=== PATIENT | female | born 1960 | race Caucasian/White ===

== ENCOUNTER 2017-09-20 06:22 | Observation (INO) | payer BC ==
[2017-09-20] MEDS ORDERED: Aspirin 81 MG Tab.Chew PO ONE (06:33)
[2017-09-20] MEDS ORDERED: Nitroglycerin 0.4 MG Tab.SL SL ONE (07:07)
[2017-09-20] MEDS ORDERED: Sodium Chloride 0.9% 1,000 ML IV ONE (07:09)
--- NOTE | 2017-09-20 07:20 | EDM.PDOC ---
ED HPI GENERAL MEDICAL PROBLEM - General Chief Complaint: Chest Pain Stated Complaint: CHEST PAIN Time Seen by Provider: 09/20/17 06:50 Source of Information: Reports: Patient, Family History Limitations: Reports: No Limitations - History of Present Illness INITIAL COMMENTS - FREE TEXT/NARRATIVE: c/o L-sided CP x 2h pt ate a kevon melt and fries at 6:30p, went to bed at 9:30 PM as usual, felt fine, slept until 5a when she was awaken by L sided CP, no sob, no n/v, no f/c/d lay in bed for an hour, pain a little less when she rubbed her chest, inc'd pain when she walked and took a deep breath was 5/10, still present, now 3/10 without meds did not take meds at home, has not had this kind of pain before, no prior EKG, never smoked says her cholesterol is at the upper edge of normal, does not take meds for it father had several MIs and age 84 from a CVA, mother with no heart trouble , age 89 most likely from a stroke describes pain as an ache, no radiation has been under stress, 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 147/73 initial, then 115/91 without meds EKG with 0.[address] increase in II & F and 0.[address] increase in III, Q's in V1 & V2, NSR 69, no comparison no wt change, denies feet swelling altho notes that her socks has been leaving a dent the past 2 weeks when she takes them off, does have trace edema to presacral area present b/l now left chest pain Pain Score (Numeric/FACES): 5 - Related Data Allergies Allergy/AdvReac Type Severity Reaction Status Date / Time amoxicillin Allergy Rash Verified 09/20/17 08:31 Home Meds: Home Meds Alendronate Sodium [Alendronate] 70 mg PO PATTERSON 09/20/17 [History] Ca/D3/Mag Ox/Zinc/Precision Lens Polisher/Bassem/Bor [Calcium 600-D3 Plus Caplet] 1 tab PO BID [History] FLUoxetine HCl [Fluoxetine HCl] 20 mg PO BID 09/20/17 [History] Hydrochlorothiazide 25 mg PO DAILY 09/20/17 [History] NIFEdipine [Nifedipine ER] 30 mg PO DAILY 09/20/17 [History] Past Medical History Cardiovascular History: Reports: Hypertension 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 Denies: Fever, Chills, Malaise, Fatigue, Night Sweats, Diaphoresis HEENT: Reports: No Symptoms Respiratory: Reports: No Symptoms. Denies: Shortness of Breath, Cough Cardiovascular: Reports: Chest Pain Endocrine: Reports: No Symptoms GI/Abdominal: Reports: No Symptoms. Denies: Abdominal Pain, Nausea, Vomiting : Reports: No Symptoms Musculoskeletal: Reports: No Symptoms Skin: Reports: No Symptoms Neurological: Reports: No Symptoms Psychiatric: Reports: No Symptoms Hematologic/Lymphatic: Reports: No Symptoms Immunologic: Reports: No Symptoms ED EXAM, GENERAL - Physical Exam Exam: See Below Exam Limited By: No Limitations General Appearance: Alert, WD/WN, Anxious Eye Exam: Bilateral Eye: Normal Inspection Ears: Normal External Exam Nose: Normal Inspection, Normal Mucosa, No Blood Throat/Mouth: Normal Inspection, Normal Lips, Normal Teeth, Normal Gums, Normal Oropharynx, Normal Voice, No Airway Compromise Head: Atraumatic, Normocephalic Neck: Normal Inspection, Supple, Non-Tender, Full Range of Motion, Other (nl symmetric thyroid when she swallows). No: Lymphadenopathy (R), Lymphadenopathy (L), Thyromegaly Respiratory/Chest: No Respiratory Distress, Lungs Clear, Normal Breath Sounds, No Accessory Muscle Use, Other (mild tender to left ribs to L of midline) Cardiovascular: Regular Rate, Rhythm, No Edema, No Gallop, No JVD, No Murmur, No Rub GI/Abdominal: Normal Bowel Sounds, Soft, Non-Tender, No Organomegaly, No Distention, No Mass Back Exam: Normal Inspection, Full Range of Motion, NT Extremities: Normal Inspection, Normal Range of Motion, Non-Tender, No Pedal Edema, Other (trace to 1+ edema to groin b/l, 1+ presacral edema) Neurological: Alert, Oriented, CN II-XII Intact, Normal Cognition, No Motor/ Sensory Deficits Psychiatric: Normal Affect, Normal Mood Skin Exam: Warm, Dry, Intact, Normal Color, No Rash Lymphatic: No Adenopathy Course - Vital Signs Last Recorded V/S: Last Vital Signs Temp 36.8 C 09/20/17 06:22 Pulse 74 09/20/17 06:22 Resp 18 09/20/17 08:10 BP 132/64 09/20/17 08:10 Pulse Ox 98 09/20/17 08:10 - Orders/Labs/Meds Orders: Active Orders 24 hr Category Date Time Status Chest 2V [CR] Stat Exams 09/20/17 07:48 Taken Chest w Cont [CT] Stat Exams 09/20/17 08:17 Ordered EKG 12 Lead [EK] Routine Ther 09/20/17 07:00 Ordered EKG 12 Lead [EK] Routine Ther 09/20/17 07:41 Ordered Labs: Laboratory Tests 09/20/17 09/20/17 09/20/17 Range/Units 06:34 06:34 06:34 WBC 3.8 L (4.5-12.0) X10-3/uL RBC 4.35 (3.23-5.20) x10(6)uL Hgb 13.3 (11.5-15.5) g/dL Hct 39.5 (30.0-51.3) % MCV 90.8 (80-96) fL MCH 30.6 (27.7-33.6) pg MCHC 33.7 (32.2-35.4) g/dL RDW 13.7 (11.5-15.5) % Plt Count 282 (125-369) X10(3)uL MPV 8.0 (7.4-10.4) fL Neut % (Auto) 43.7 L (46-82) % Lymph % (Auto) 38.4 H (13-37) % Randall % (Auto) 14.0 H (4-12) % Eos % (Auto) 3 (1.0-5.0) % Baso % (Auto) 1 (0-2) % Neut # (Auto) 1.7 (1.6-8.3) # Lymph # (Auto) 1.5 (0.6-5.0) # Randall # (Auto) 0.5 (0.0-1.3) # Eos # (Auto) 0.1 (0.0-0.8) # Baso # (Auto) 0.0 (0.0-0.2) # D-Dimer, Quantitative < 100 L (100-400) ng/mL Sodium 138 (135-145) mmol/L Potassium 3.9 (3.5-5.3) mmol/L Chloride 102 (100-110) mmol/L Carbon Dioxide 25 (21-32) mmol/L BUN 10 (7-18) mg/dL Creatinine 0.6 (0.55-1.02) mg/dL Est Cr Clr Drug Dosing 83.51 mL/min Estimated GFR (MDRD) > 60 (>60) BUN/Creatinine Ratio 16.7 (9-20) Glucose 87 (80-116) mg/dL Calcium 8.6 (8.6-10.2) mg/dL Total Bilirubin 0.4 (0.1-1.3) mg/dL AST 22 (5-25) IU/L ALT 25 (12-36) U/L Alkaline Phosphatase 37 L (56-112) IU/L Creatine Kinase (60-160) IU/L CK-MB (CK-2) (0.5-5.0) ng/mL Troponin I (<0.017-0.056) ng/mL C-Reactive Protein (0.5-0.9) mg/dL NT-Pro-B Natriuret Pep (<=125) pg/mL Total Protein 6.7 (6.0-8.0) g/dL Albumin 3.6 (3.5-5.2) g/dL Globulin 3.1 g/dL Albumin/Globulin Ratio 1.2 TSH, Ultra Sensitive (0.36-3.74) IU/mL Urine Color (YELLOW) Urine Appearance (CLEAR) Urine pH (5.0-6.5) Ur Specific [place] (1.010-1.025) Urine Protein (NEGATIVE) mg/dL Urine Glucose (UA) (NEGATIVE) mg/dL Urine Ketones (NEGATIVE) mg/dL Urine Occult Blood (NEGATIVE) Urine Nitrite (NEGATIVE) Urine Bilirubin (NEGATIVE) Urine Urobilinogen (NEGATIVE) mg/dL Ur Leukocyte Esterase (NEGATIVE) Urine WBC (0) Ur Squamous Epith Cells (NS,R,O) Urine Bacteria (NS) 09/20/17 09/20/17 09/20/17 Range/Units 06:34 06:34 06:34 WBC (4.5-12.0) X10-3/uL RBC (3.23-5.20) x10(6)uL Hgb (11.5-15.5) g/dL Hct (30.0-51.3) % MCV (80-96) fL MCH (27.7-33.6) pg MCHC (32.2-35.4) g/dL RDW (11.5-15.5) % Plt Count (125-369) X10(3)uL MPV (7.4-10.4) fL Neut % (Auto) (46-82) % Lymph % (Auto) (13-37) % Randall % (Auto) (4-12) % Eos % (Auto) (1.0-5.0) % Baso % (Auto) (0-2) % Neut # (Auto) (1.6-8.3) # Lymph # (Auto) (0.6-5.0) # Randall # (Auto) (0.0-1.3) # Eos # (Auto) (0.0-0.8) # Baso # (Auto) (0.0-0.2) # D-Dimer, Quantitative (100-400) ng/mL Sodium (135-145) mmol/L Potassium (3.5-5.3) mmol/L Chloride (100-110) mmol/L Carbon Dioxide (21-32) mmol/L BUN (7-18) mg/dL Creatinine (0.55-1.02) mg/dL Est Cr Clr Drug Dosing mL/min Estimated GFR (MDRD) (>60) BUN/Creatinine Ratio (9-20) Glucose (80-116) mg/dL Calcium (8.6-10.2) mg/dL Total Bilirubin (0.1-1.3) mg/dL AST (5-25) IU/L ALT (12-36) U/L Alkaline Phosphatase (56-112) IU/L Creatine Kinase 117 (60-160) IU/L CK-MB (CK-2) 1.0 (0.5-5.0) ng/mL Troponin I < 0.017 L (<0.017-0.056) ng/mL C-Reactive Protein < 0.2 L (0.5-0.9) mg/dL NT-Pro-B Natriuret Pep 61 (<=125) pg/mL Total Protein (6.0-8.0) g/dL Albumin (3.5-5.2) g/dL Globulin g/dL Albumin/Globulin Ratio TSH, Ultra Sensitive 2.35 (0.36-3.74) IU/mL Urine Color (YELLOW) Urine Appearance (CLEAR) Urine pH (5.0-6.5) Ur Specific [place] (1.010-1.025) Urine Protein (NEGATIVE) mg/dL Urine Glucose (UA) (NEGATIVE) mg/dL Urine Ketones (NEGATIVE) mg/dL Urine Occult Blood (NEGATIVE) Urine Nitrite (NEGATIVE) Urine Bilirubin (NEGATIVE) Urine Urobilinogen (NEGATIVE) mg/dL Ur Leukocyte Esterase (NEGATIVE) Urine WBC (0) Ur Squamous Epith Cells (NS,R,O) Urine Bacteria (NS) 09/20/17 Range/Units 08:06 WBC (4.5-12.0) X10-3/uL RBC (3.23-5.20) x10(6)uL Hgb (11.5-15.5) g/dL Hct (30.0-51.3) % MCV (80-96) fL MCH (27.7-33.6) pg MCHC (32.2-35.4) g/dL RDW (11.5-15.5) % Plt Count (125-369) X10(3)uL MPV (7.4-10.4) fL Neut % (Auto) (46-82) % Lymph % (Auto) (13-37) % Randall % (Auto) (4-12) % Eos % (Auto) (1.0-5.0) % Baso % (Auto) (0-2) % Neut # (Auto) (1.6-8.3) # Lymph # (Auto) (0.6-5.0) # Randall # (Auto) (0.0-1.3) # Eos # (Auto) (0.0-0.8) # Baso # (Auto) (0.0-0.2) # D-Dimer, Quantitative (100-400) ng/mL Sodium (135-145) mmol/L Potassium (3.5-5.3) mmol/L Chloride (100-110) mmol/L Carbon Dioxide (21-32) mmol/L BUN (7-18) mg/dL Creatinine (0.55-1.02) mg/dL Est Cr Clr Drug Dosing mL/min Estimated GFR (MDRD) (>60) BUN/Creatinine Ratio (9-20) Glucose (80-116) mg/dL Calcium (8.6-10.2) mg/dL Total Bilirubin (0.1-1.3) mg/dL AST (5-25) IU/L ALT (12-36) U/L Alkaline Phosphatase (56-112) IU/L Creatine Kinase (60-160) IU/L CK-MB (CK-2) (0.5-5.0) ng/mL Troponin I (<0.017-0.056) ng/mL C-Reactive Protein (0.5-0.9) mg/dL NT-Pro-B Natriuret Pep (<=125) pg/mL Total Protein (6.0-8.0) g/dL Albumin (3.5-5.2) g/dL Globulin g/dL Albumin/Globulin Ratio TSH, Ultra Sensitive (0.36-3.74) IU/mL Urine Color Yellow (YELLOW) Urine Appearance Slightly cloudy (CLEAR) Urine pH 8.0 H (5.0-6.5) Ur Specific [place] 1.015 (1.010-1.025) Urine Protein Negative (NEGATIVE) mg/dL Urine Glucose (UA) Normal (NEGATIVE) mg/dL Urine Ketones Negative (NEGATIVE) mg/dL Urine Occult Blood Negative (NEGATIVE) Urine Nitrite Negative (NEGATIVE) Urine Bilirubin Negative (NEGATIVE) Urine Urobilinogen Normal (NEGATIVE) mg/dL Ur Leukocyte Esterase Negative (NEGATIVE) Urine WBC 0-5 (0) Ur Squamous Epith Cells Few H (NS,R,O) Urine Bacteria Few H (NS) Meds: Medications Discontinued Medications Generic Name Dose Route Start Last Admin Trade Name Freq PRN Reason Stop Dose Admin Aspirin 324 mg 09/20/17 06:33 09/20/17 06:36 Aspirin PO 09/20/17 06:34 324 mg ONETIME ONE Administration Sodium Chloride 1,000 mls @ 999 mls/hr 09/20/17 07:09 09/20/17 07:35 Normal Saline IV 09/20/17 08:09 999 mls/hr .BOLUS ONE Administration Iopamidol 75 ml 09/20/17 08:21 09/20/17 08:35 Isovue-370 (76%) IV 09/20/17 08:22 75 ml ONETIME ONE Administration Nitroglycerin 0.4 mg 09/20/17 07:07 Nitrostat SL 09/20/17 07:08 ONETIME ONE - Re-Assessments/Exams Free Text/Narrative Re-Assessment/Exam: 09/20/17 09:53 09:53 CxR showed a new compression fx T8 c/w 05/16, chest CT with contrast showed no evidence of pathologic fx, did show some incidental findings which were reported to pt, including possible need for repeat CT in 6m which she should d/w her PCP (Dr Park in [place]) EKG did show inc'd ST 0.5 mm in III with pain 3/10 that was no longer present with pain 0/10. Also has a Q in V1 suggestive of a possible old septal GA, pt may be a candidate for a stress echo looking for abnormal septal wall movement. Will admit to observation for r/o GA and echo tomorrow, pt and agree, accepted by hospitalist Dr Villalta who stopped by ED and reviewed pt's EKGs. Departure - Departure Time of Disposition: 09:57 Disposition: Refer to Observation Condition: Good Clinical Impression: Chest pain, rule out acute myocardial infarction, Peripheral edema, First degree heart block, Abnormal EKG, Wedge compression fracture of T8 vertebra, Pericardial cyst, Thyroid nodule, Pulmonary nodule Referrals: Diana Barton ARNP [Primary Care Provider] - Forms: ED Department Discharge - My Orders Last 24 Hours: My Active Orders 09/20/17 07:00 EKG 12 Lead [EK] Routine 09/20/17 07:41 EKG 12 Lead [EK] Routine 09/20/17 07:48 Chest 2V [CR] Stat 09/20/17 08:17 Chest w Cont [CT] Stat - Assessment/Plan Last 24 Hours: My Active Orders 09/20/17 07:00 EKG 12 Lead [EK] Routine 09/20/17 07:41 EKG 12 Lead [EK] Routine 09/20/17 07:48 Chest 2V [CR] Stat 09/20/17 08:17 Chest w Cont [CT] Stat
[2017-09-20] MEDS ORDERED: Iopamidol 755 Mg/ML 75 ML Bottle IV ONE (08:21)
[2017-09-20] MEDS ORDERED: Morphine 2 MG/ML Syringe IVPUSH PRN (10:03)
[2017-09-20] MEDS ORDERED: Nitroglycerin 0.4 MG Tab.SL SL PRN (10:03)
[2017-09-20] MEDS ORDERED: Zolpidem 5 MG Tab PO PRN (10:03)
[2017-09-20] MEDS ORDERED: Ondansetron 4 MG/2 ML SDV IV PRN (10:03)
[2017-09-20] MEDS ORDERED: Enoxaparin 40 MG/0.4 ML Syringe SUBCUT SCH (10:15)
[2017-09-20] MEDS: Hydrochlorothiazide 25 MG Tab PO SCH (11:35)
[2017-09-20] MEDS: FLUoxetine 20 MG Cap PO SCH (11:35)
[2017-09-20] MEDS: NIFEdipine 30 MG Tab.ER PO SCH (11:35)
[2017-09-20] MEDS: Acetaminophen 325 MG Tab PO PRN ×2 (16:20→23:42)
--- NOTE | 2017-09-20 19:34 | PCM.HP ---
H&P History of Present Illness - General Date of Service: 09/20/17 Admit Problem/Dx: Admission Diagnosis/Problem Admission Diagnosis/Problem Chest pain Source of Information: Patient History Limitations: Reports: No Limitations - History of Present Illness Initial Comments - Free Text/Narative: Barbie woke up with chest pain this morning at 5. She describes a dull ache mild to moderate intensity with no radiation just uncomfortable. Nitroglycerin did help some. Never had anything like this before. She denies any nausea vomiting shortness of breath, fever or cough. She's previously healthy with the exception of borderline hypertension that is stable, anxiety well controlled and osteoporosis stable on biphosphonate's. Headache Pain Score (Numeric/FACES): 5 left chest pain Pain Score (Numeric/FACES): 5 - Related Data Allergies/Adverse Reactions: Allergies Allergy/AdvReac Type Severity Reaction Status Date / Time amoxicillin Allergy Rash Verified 09/20/17 08:31 Home Medications: Home Meds Alendronate Sodium [Alendronate] 70 mg PO PATTERSON 09/20/17 [History] Ca/D3/Mag Ox/Zinc/Teacher Of The Visually Impaired/Bassem/Bor [Calcium 600-D3 Plus Caplet] 2 tab PO DAILY 09/20 [History] FLUoxetine HCl [Fluoxetine HCl] 40 mg PO DAILY 09/20/17 [History] Hydrochlorothiazide 25 mg PO DAILY 09/20/17 [History] NIFEdipine [Nifedipine ER] 30 mg PO DAILY 09/20/17 [History] Past Medical History Cardiovascular History: Reports: Hypertension 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: Musculoskeletal History: Reports: Osteoporosis Psychiatric History: Reports: Anxiety - Infectious Disease History Infectious Disease History: Reports: Measles, Mumps - Past Surgical History HEENT Surgical History: Reports: LASIK GI Surgical History: Reports: Cholecystectomy Social & Family History - Family History Family Medical History: Unobtainable - Tobacco Use Smoking Status *Q: Never Smoker - Caffeine Use Caffeine Use: Reports: Coffee - Recreational Drug Use Recreational Drug Use: No H&P Review of Systems - Review of Systems: Review Of Systems: ROS reveals no pertinent complaints other than HPI. Exam - Exam Exam: See Below - Vital Signs Vital Signs: Last Vital Signs Temp 99.8 F 09/20/17 16:46 Pulse 79 09/20/17 16:02 Resp 18 09/20/17 16:46 BP 128/73 09/20/17 16:46 Pulse Ox 96 09/20/17 16:46 Weight: 69.899 kg - Exam General: Alert, Oriented, 4 HEENT: PERRLA, Hearing Intact, Mucosa Moist & [place], Nares Patent, Normal Nasal Septum, Posterior Pharynx Clear, Conjunctiva Clear, EOMI, EACs Clear, TMs Clear Neck: Supple, Trachea Midline, 2 Lungs: Clear to Auscultation, Normal Respiratory Effort Cardiovascular: Regular Rate, Regular Rhythm GI/Abdominal Exam: Normal Bowel Sounds, Soft, Non-Tender, No Organomegaly, No Distention, No Abnormal Bruit, No Mass, Pelvis Stable (Female) Exam: Deferred Rectal (Female) Exam: Deferred Back Exam: Normal Inspection, Full Range of Motion, NT Extremities: Normal Inspection, Normal Range of Motion, Non-Tender, No Pedal Edema, Normal Capillary Refill Skin: Warm, Dry, Intact Neurological: Cranial Nerves Intact, Reflexes Equal Bilateral Neuro Extensive - Mental Status: Alert, Oriented x3, Normal Mood/Affect, Normal Cognition Neuro Extensive - Motor, Sensory, Reflexes: CN II-XII Intact, Normal Gait, Normal Reflexes Psychiatric: Alert, Normal Affect, Normal Mood - Patient Data Lab Results Last 24 hrs: Laboratory Results - last 24 hr 09/20/17 Range/Units 16:20 Troponin I < 0.017 L (<0.017-0.056) ng/mL Result Diagrams: 09/20/17 06:34 09/20/17 06:34 EKG INTERPRETATION Rhythm: NSR *Q Meaningful Use (ADM) - VTE *Q VTE Criteria *Q: - Stroke *Q Stroke Criteria *Q: - AMI *Q AMI Criteria *Q: - Problem List (1) Chest pain, rule out acute myocardial infarction SNOMED Code(s): 89941999 ICD Code: R07.9 - CHEST PAIN, UNSPECIFIED Status: Acute Current Visit: Yes (2) Osteoporotic compression fracture of spine SNOMED Code(s): 80689861 ICD Code: M80.88XA - OTH OSTEOPOR W CURRENT PATH FRACTURE, VERTEBRA(E), INIT Status: Acute Current Visit: Yes Qualifiers: Encounter type: sequela Qualified Code(s): M80.88XS - Other osteoporosis with current pathological fracture, vertebra(e), sequela (3) TORIBIO (generalized anxiety disorder) SNOMED Code(s): 75268000 ICD Code: F41.1 - GENERALIZED ANXIETY DISORDER Status: Chronic Current Visit: Yes (4) HTN (hypertension) SNOMED Code(s): 54573733 ICD Code: I10 - ESSENTIAL (PRIMARY) HYPERTENSION Status: Chronic Current Visit: Yes Qualifiers: Hypertension type: essential hypertension Qualified Code(s): I10 - Essential (primary) hypertension Problem List Initiated/Reviewed/Updated: Yes Orders Last 24hrs: Active Orders 24 hr Category Date Time Status Patient Status [ADT] Routine ADT 09/20/17 10:03 Active EKG Documentation Completion [RC] 1800 Care 09/20/17 10:08 Active Oxygen Therapy [RC] PRN Care 09/20/17 10:03 Active Up ad Divine [RC] ASDIRECTED Care 09/20/17 10:03 Active Vital Signs [RC] 04,08,12,16,20,00 Care 09/20/17 10:03 Active 2 Gram Sodium Diet [DIET] Diet 09/20/17 Lunch Active Echo Comp wo Cont [US] Routine Exams 09/21/17 08:00 Ordered CBC WITH AUTO DIFF [HEME] AM Lab 09/21/17 05:11 Ordered TROPONIN I [CHEM] AM Lab 09/21/17 05:11 Ordered Acetaminophen [Tylenol] Med 09/20/17 10:03 Active 650 mg PO Q4H PRN Alendronate [Fosamax] Med 09/23/17 06:00 Active 70 mg PO PATTERSON Aspirin Med 09/21/17 09:00 Active 81 mg PO DAILY Enoxaparin [Lovenox] Med 09/20/17 10:15 Active 40 mg SUBCUT Q24H FLUoxetine [PROzac] Med 09/20/17 11:30 Active 40 mg PO DAILY Hydrochlorothiazide Med 09/20/17 11:30 Active 25 mg PO DAILY Morphine Med 09/20/17 10:03 Active 2 mg IVPUSH Q2H PRN NIFEdipine [Procardia XL] Med 09/20/17 11:30 Active 30 mg PO DAILY Nitroglycerin [Nitrostat] Med 09/20/17 10:03 Active 0.4 mg SL Q5M PRN Ondansetron [Zofran] Med 09/20/17 10:03 Active 4 mg IV Q4H PRN Zolpidem [Ambien] Med 09/20/17 10:03 Active 5 mg PO BEDTIME PRN Resuscitation Status Routine Resus Stat 09/20/17 10:03 Ordered EKG 12 Lead [EK] AM Ther 09/21/17 05:11 Ordered EKG 12 Lead [EK] Routine Ther 09/20/17 18:00 Ordered Medication Orders Acetaminophen (Tylenol) 650 mg PO Q4H PRN PRN Reason: Pain (Mild 1-3)/fever Last Admin: 09/20/17 16:20 Dose: 650 mg Alendronate Sodium (Fosamax) 70 mg PO PATTERSON [facility] Aspirin (Aspirin) 81 mg PO DAILY [facility] Enoxaparin Sodium (Lovenox) 40 mg SUBCUT Q24H [facility] Last Admin: 09/20/17 11:32 Dose: 40 mg Fluoxetine HCl (Prozac) 40 mg PO DAILY [facility] Last Admin: 09/20/17 11:35 Dose: 40 mg Hydrochlorothiazide (Hydrochlorothiazide) 25 mg PO DAILY [facility] Last Admin: 09/20/17 11:35 Dose: 25 mg Morphine Sulfate (Morphine) 2 mg IVPUSH Q2H PRN PRN Reason: Pain (severe 7-10) Nifedipine (Procardia Xl) 30 mg PO DAILY [facility] Last Admin: 09/20/17 11:35 Dose: 30 mg Nitroglycerin (Nitrostat) 0.4 mg SL Q5M PRN PRN Reason: Chest Pain Ondansetron HCl (Zofran) 4 mg IV Q4H PRN PRN Reason: Nausea/Vomiting Zolpidem Tartrate (Ambien) 5 mg PO BEDTIME PRN PRN Reason: Sleep Assessment/Plan Comment:: Initial lab work appears to be normal. No ST changes in the EKG. We'll repeat labs and EKG in the morning and a stress test as an outpatient. We'll continue to regular home medications. The fracture the thoracic spine appears old probably osteoporotic. I do not have the reports(definitive read), from the CT
[2017-09-21] MEDS: NIFEdipine 30 MG Tab.ER PO SCH (08:27)
[2017-09-21] MEDS: Hydrochlorothiazide 25 MG Tab PO SCH (08:28)
[2017-09-21] MEDS: FLUoxetine 20 MG Cap PO SCH (08:28)
--- NOTE | 2017-09-21 08:35 | PCM.DCSUM1 ---
Discharge Summary - Hospital Course Free Text/Narrative:: Date of admission: 09/20/2017 Date of discharge: 09/21/2017 Admission diagnosis: Chest pain, rule out acute myocardial infarction. Discharge diagnosis: Same. History of present illness: Patient is a 57-year-old female who awoke the day of admission at 500 with substernal chest pain. Had no other associated symptoms. No dizziness, no diaphoresis, no nausea, no vomiting, no radiation, no SOB. It lasted for about an hour before she got up and had her bring her into the emergency department. It resolved spontaneously during her emergency room stay. Initial troponin was negative. No EKG changes. The patient was admitted for observation and rule out myocardial infarction. She has a history of hypertension, anxiety, and osteoporosis. She had a CAT scan done in the emergency department which showed a T8 compression fracture new since 2007 imaging but likely not new as the patient has had dull pain in her back in this area on and off for a year. It also showed a 6 mm right lower lobe lung nodule which was recommended to have 6-[address] follow-up and a right thyroid nodule which was subcentimeter hypodense in the right lower lobe of the thyroid. Consults: None Procedures: CT scan of the chest with results as noted above. Condition on the day of discharge: Vital signs were stable as per EMR. Healthy-appearing female in no acute distress. Denied chest pain, shortness of breath, nausea, vomiting. Does note that occasionally at home she gets a little swelling at the end of the day where her socks liter mirtha on her ankles. Otherwise no pedal edema typically and none today. On exam head is atraumatic, normocephalic. Pupils equally round and reactive. Lungs clear to auscultation, heart sounds are regular with normal rate and rhythm, no murmurs. She does have no pain over palpation of the spine. No swelling in this area. Abdomen is soft, nontender, nondistended. Normal bowel sounds. No pedal edema. Discharge disposition: To home. Discharge instructions: Low-salt diet, take it easy until follow-up visit next week, take an aspirin enteric-coated 81 mg daily until follow-up. - Discharge Data Discharge Date: 09/21/17 Discharge Disposition: Home, Self-Care 01 Condition: Good - Discharge Diagnosis/Problem(s) (1) Chest pain, rule out acute myocardial infarction SNOMED Code(s): 98811260 ICD Code: R07.9 - CHEST PAIN, UNSPECIFIED Status: Acute Current Visit: Yes Problem Details: Negative troponins 2. No recurrent symptoms. No EKG changes. Patient ready for discharge. Recommended daily 81 mg enteric-coated until seen in follow-up next week by her primary care provider. Can stratify her risk and recommend further workup. She follows with [facility] so will be given a copy of her discharge and admission paperwork to hand carry to the clinic there. (2) Osteoporotic compression fracture of spine SNOMED Code(s): 23054299 ICD Code: M80.88XA - OTH OSTEOPOR W CURRENT PATH FRACTURE, VERTEBRA(E), INIT Status: Acute Current Visit: Yes Problem Details: Appears to be old. Continue osteoporosis treatment and follow-up with PCP. Qualifiers: Encounter type: sequela Qualified Code(s): M80.88XS - Other osteoporosis with current pathological fracture, vertebra(e), sequela (3) Pulmonary nodule SNOMED Code(s): 457335904 ICD Code: R91.1 - SOLITARY PULMONARY NODULE Status: Acute Current Visit: Yes Problem Details: Patient was unaware of this. CT chest showed a right lower lobe pulmonary nodule 6 mm in diameter. Recommended follow-up at 6-[address] repeat CT. Will defer this to PCP. Discussed at length with patient prior to discharge. (4) Thyroid nodule SNOMED Code(s): 372312276 ICD Code: E04.1 - NONTOXIC SINGLE THYROID NODULE Status: Acute Current Visit: Yes Problem Details: Right lower lobe thyroid nodule hypodense subcentimeter seen on CAT scan. Patient made aware and no follow-up recommendations by radiology. (5) TORIBIO (generalized anxiety disorder) SNOMED Code(s): 79490000 ICD Code: F41.1 - GENERALIZED ANXIETY DISORDER Status: Chronic Current Visit: Yes Problem Details: Well-controlled. No concerns. Continue outpatient medication. (6) HTN (hypertension) SNOMED Code(s): 24887726 ICD Code: I10 - ESSENTIAL (PRIMARY) HYPERTENSION Status: Chronic Current Visit: Yes Problem Details: Well controlled during hospitalization. Continue outpatient medications. Qualifiers: Hypertension type: essential hypertension Qualified Code(s): I10 - Essential (primary) hypertension - Patient Instructions Diet: Heart Healthy Diet Activity: No Strenuous Activities Driving: May Drive Today - Discharge Plan Home Medications: Home Meds Alendronate Sodium [Alendronate] 70 mg PO PATTERSON 09/20/17 [History] Ca/D3/Mag Ox/Zinc/Payroll Director/Bassem/Bor [Calcium 600-D3 Plus Caplet] 2 tab PO DAILY 09/20 [History] FLUoxetine HCl [Fluoxetine HCl] 40 mg PO DAILY 09/20/17 [History] Hydrochlorothiazide 25 mg PO DAILY 09/20/17 [History] NIFEdipine [Nifedipine ER] 30 mg PO DAILY 09/20/17 [History] Aspirin 81 mg PO DAILY tab.chew 09/21/17 [Rx] Patient Handouts: Enoxaparin injection Forms: ED Department Discharge Referrals: Diana Barton ARNP [Primary Care Provider] - - Discharge Summary/Plan Comment DC Time >30 min.: Yes - Patient Data Vitals - Most Recent: Last Vital Signs Temp 37.3 C 09/20/17 23:55 Pulse 86 09/21/17 06:15 Resp 16 09/21/17 06:15 BP 118/59 L 09/21/17 08:27 Pulse Ox 98 09/21/17 06:15 Weight - Most Recent: 69.899 kg Lab Results - Last 24 hrs: Laboratory Results - last 24 hr 09/20/17 09/21/17 09/21/17 Range/Units 16:20 06:35 06:35 WBC 6.3 (4.5-12.0) X10-3/uL RBC 4.33 (3.23-5.20) x10(6)uL Hgb 13.6 (11.5-15.5) g/dL Hct 39.0 (30.0-51.3) % MCV 90.0 (80-96) fL MCH 31.3 (27.7-33.6) pg MCHC 34.8 (32.2-35.4) g/dL RDW 13.8 (11.5-15.5) % Plt Count 249 (125-369) X10(3)uL MPV 8.4 (7.4-10.4) fL Neut % (Auto) 68.8 (46-82) % Lymph % (Auto) 21.5 (13-37) % Kenton % (Auto) 8.4 (4-12) % Eos % (Auto) 1 (1.0-5.0) % Baso % (Auto) 1 (0-2) % Neut # (Auto) 4.3 (1.6-8.3) # Lymph # (Auto) 1.3 (0.6-5.0) # Kenton # (Auto) 0.5 (0.0-1.3) # Eos # (Auto) 0.0 (0.0-0.8) # Baso # (Auto) 0.1 (0.0-0.2) # Sodium (135-145) mmol/L Potassium (3.5-5.3) mmol/L Chloride (100-110) mmol/L Carbon Dioxide (21-32) mmol/L BUN (7-18) mg/dL Creatinine (0.55-1.02) mg/dL Est Cr Clr Drug Dosing mL/min Estimated GFR (MDRD) (>60) BUN/Creatinine Ratio (9-20) Glucose (80-116) mg/dL Calcium (8.6-10.2) mg/dL Troponin I < 0.017 L < 0.017 L (<0.017-0.056) ng/mL /16/18 Range/Units 06:35 WBC (4.5-12.0) X10-3/uL RBC (3.23-5.20) x10(6)uL Hgb (11.5-15.5) g/dL Hct (30.0-51.3) % MCV (80-96) fL MCH (27.7-33.6) pg MCHC (32.2-35.4) g/dL RDW (11.5-15.5) % Plt Count (125-369) X10(3)uL MPV (7.4-10.4) fL Neut % (Auto) (46-82) % Lymph % (Auto) (13-37) % Kenton % (Auto) (4-12) % Eos % (Auto) (1.0-5.0) % Baso % (Auto) (0-2) % Neut # (Auto) (1.6-8.3) # Lymph # (Auto) (0.6-5.0) # Kenton # (Auto) (0.0-1.3) # Eos # (Auto) (0.0-0.8) # Baso # (Auto) (0.0-0.2) # Sodium 136 (135-145) mmol/L Potassium 3.8 (3.5-5.3) mmol/L Chloride 101 (100-110) mmol/L Carbon Dioxide 24 (21-32) mmol/L BUN 13 (7-18) mg/dL Creatinine 0.5 L (0.55-1.02) mg/dL Est Cr Clr Drug Dosing 100.22 mL/min Estimated GFR (MDRD) > 60 (>60) BUN/Creatinine Ratio 26.0 H (9-20) Glucose 98 (80-116) mg/dL Calcium 8.7 (8.6-10.2) mg/dL Troponin I (<0.017-0.056) ng/mL Med Orders - Current: Current Medications Acetaminophen (Tylenol) 650 mg PO Q4H PRN PRN Reason: Pain (Mild 1-3)/fever Last Admin: 09/20/17 23:42 Dose: 650 mg Alendronate Sodium (Fosamax) 70 mg PO [facility] Aspirin (Aspirin) 81 mg PO DAILY [facility] Last Admin: 09/21/17 08:28 Dose: 81 mg Enoxaparin Sodium (Lovenox) 40 mg SUBCUT Q24H [facility] Last Admin: 09/20/17 11:32 Dose: 40 mg Fluoxetine HCl (Prozac) 40 mg PO DAILY [facility] Last Admin: 09/21/17 08:28 Dose: 40 mg Hydrochlorothiazide (Hydrochlorothiazide) 25 mg PO DAILY [facility] Last Admin: 09/21/17 08:28 Dose: 25 mg Morphine Sulfate (Morphine) 2 mg IVPUSH Q2H PRN PRN Reason: Pain (severe 7-10) Nifedipine (Procardia Xl) 30 mg PO DAILY [facility] Last Admin: 09/21/17 08:27 Dose: 30 mg Nitroglycerin (Nitrostat) 0.4 mg SL Q5M PRN PRN Reason: Chest Pain Ondansetron HCl (Zofran) 4 mg IV Q4H PRN PRN Reason: Nausea/Vomiting Zolpidem Tartrate (Ambien) 5 mg PO BEDTIME PRN PRN Reason: Sleep Discontinued Medications Aspirin (Aspirin) 324 mg PO ONETIME ONE Stop: 09/20/17 06:34 Last Admin: 09/20/17 06:36 Dose: 324 mg Sodium Chloride (Normal Saline) 1,000 mls @ 999 mls/hr IV .BOLUS ONE Stop: 09/20/17 08:09 Last Admin: 09/20/17 07:35 Dose: 999 mls/hr Iopamidol (Isovue-370 (76%)) 75 ml IV ONETIME ONE Stop: 09/20/17 08:22 Last Admin: 09/20/17 08:35 Dose: 75 ml Nitroglycerin (Nitrostat) 0.4 mg SL ONETIME ONE Stop: 09/20/17 07:08 Last Admin: 09/20/17 07:30 Dose: Not Given *Q Meaningful Use (DIS) - VTE *Q VTE Criteria *Q: - Stroke *Q Stroke Criteria *Q: - AMI *Q AMI Criteria *Q:
--- NOTE | 2017-09-21 08:47 | CR ---
INDICATION: Left-sided chest pain. CHEST: PA and lateral views of the chest, 09/20/2017, were compared with 2007, and revealed a new osteoporotic compression fracture in the mid thoracic spine, moderately severe in degree. Mild degenerative changes, hypertrophic lipping noted anterior vertebral body margins mid thoracic spine. Somewhat flattened diaphragm leaf on the left with prominent AP diameter and mild hyperaeration all suggest COPD. The heart remains within normal limits in size and shape. Minimal calcification is noted in the arch of the aorta. This may be a new finding. Overlying EKG leads are noted. An active infiltrate or effusion was not identified. IMPRESSION: 1. Osteoporotic compression fracture mid thoracic spine, new compared with 2008 , but of indeterminate age otherwise. 2. Degenerative changes mid thoracic spine. 3. Osteoporosis. 4. Probable COPD. 5. Minimal ASD aorta. MTDD
[2017-09-21] MEDS ORDERED: Aspirin 81 MG Tab.Chew PO SCH (09:00)
[2017-09-23] MEDS ORDERED: Alendronate 70 MG Tab PO SCH (06:00)
== END 2017-09-21 10:08 | disposition home or self-care (01) ==
LOC: FB.ED 06:22 → FB.ICU 08:43
PROVIDERS: ADMIT Family Medicine; ATTEND Family Medicine
DX: R07.2 Precordial pain (principal); I10 Essential (primary) hypertension; R91.1 Solitary pulmonary nodule; M80.88XS Other osteoporosis with current pathological fracture, vertebra(e), sequela; E04.1 Nontoxic single thyroid nodule; F41.1 Generalized anxiety disorder; Z79.899 Other long term (current) drug therapy; Z79.82 Long term (current) use of aspirin; Z88.1 Allergy status to other antibiotic agents
CPT/HCPCS: 36415; 71046; 71260; 80048; 80053; 81001; 82550; 82553; 83880; 84443; 84484; 85025; 85379; 86140; 93005; 96360; 96361; 99285; A9270; J1650; J7040; Q9967; G0378